=== PATIENT | female | born 1950 | race Caucasian/White ===

== ENCOUNTER 2020-02-25 15:12 | Outpatient (CLI) | payer MEDICARE, BC ==
[2020-02-25] MEDS ORDERED: RUTI1TAB PO (15:47)
[2020-02-25] MEDS ORDERED: DOCU-131 PO (15:47)
[2020-02-25] MEDS ORDERED: CBD cream TP (15:47)
[2020-02-25] MEDS ORDERED: cranberry PO (15:47)
[2020-02-25] MEDS ORDERED: OXYC-307 PO (15:47)
[2020-02-25] MEDS ORDERED: MULT-706 PO (15:47)
[2020-02-25] MEDS ORDERED: MULT-717 PO (15:47)
[2020-02-25] MEDS ORDERED: CALC-126 PO (15:47)
[2020-02-25] MEDS ORDERED: LORA-702 PO (15:47)
[2020-02-25] MEDS ORDERED: CHOL10003 PO (15:47)
[2020-02-25] MEDS ORDERED: LIDO5CRE26 TP (15:47)
[2020-02-25] MEDS ORDERED: MELA10TA3 PO (15:47)
[2020-02-25] MEDS ORDERED: LOPE2CAP3 PO (15:47)
[2020-02-25] MEDS ORDERED: VIT1TABL32 PO (15:47)
[2020-02-25] MEDS ORDERED: LORA-446 PO (15:47)
[2020-02-25 16:48] LABS: BASOPHILS # (AUTO) 0.01 x10^3/uL (0-0.1); BASOPHILS % (AUTO) 0 % (0-1); EOSINOPHILS # (AUTO) 0.09 x10^3/uL (0-0.4); EOSINOPHILS % (AUTO) 1 % (1-7); LYMPHOCYTES # (AUTO) 0.81 x10^3/uL (1-3.4); LYMPHOCYTES % (AUTO) 13 % (22-44); MD NO; MEAN CORPUSCULAR HEMOGLOBIN 33.3 pg (27.0-34.8); MEAN CORPUSCULAR HGB CONC 35.5 g/dL (32.4-35.8); MEAN CORPUSCULAR VOLUME 93.6 fL (80-100); MEAN PLATELET VOLUME 7.5 fL (7.4-10.4); MONOCYTES # (AUTO) 0.29 x10^3/uL (0.2-0.8); MONOCYTES % (AUTO) 5 % (2-9); NEUTROPHILS # (AUTO) 5.08 x10^3/uL (1.8-6.8); NEUTROPHILS % (AUTO) 81 % (42-75); PLATELET COUNT 220 x10^3/uL (130-400); RED BLOOD COUNT 4.26 x10^6/uL (3.82-5.3); RED CELL DISTRIBUTION WIDTH 13.2 % (9.6-15.2)
[2020-02-25 16:48] LABS: MICROSCOPIC AUTO
[2020-02-25 16:54] LABS: INTERNATIONAL NORMALIZED RATIO 0.96 (0.93-1.1); PROTHROMBIN TIME 10.2 Seconds (9.6-11.5)
[2020-02-25 16:55] LABS: ANION GAP 8 mmol/L (5-15); CALCIUM 9.4 mg/dL (8.5-10.1); CHLORIDE 109 mmol/L (98-107); CREATININE 0.67 mg/dL (0.55-1.02)
== END 2020-02-25 23:59 | disposition home or self-care (01) ==
LOC: STAR 15:12
PROVIDERS: ATTEND Urology
DX: Z01.818 Encounter for other preprocedural examination (principal); N20.0 Calculus of kidney
CPT/HCPCS: 36415; 80048; 81001; 85025; 85610; 87077; 87086; 87186; 93005

== ENCOUNTER 2021-06-07 13:37 | Emergency (ER) | payer MEDICARE, BC ==
[~2021-06-07] VITALS: Ht 162.6 cm; Wt 127.3 kg
[~2021-06-07 13:37] MED LIST: CALC-126 PO; CBD cream TP; CHOL10003 PO; DOCU-131 PO; LIDO5CRE26 TP; LOPE2CAP3 PO; LORA-446 PO; LORA-702 PO; MELA10TA3 PO; MULT-706 PO; MULT-717 PO; OXYC-501 PO; RUTI1TAB PO; VIT1TABL32 PO; cranberry PO
[2021-06-07] MEDS ORDERED: OXYcodone IR 5MG TABLET PO ONE ×2 (14:00→17:00)
--- NOTE | 2021-06-07 14:00 | NUR ---
PT BIB [facility] FROM HOME FOR GLF, STATES SHE "TRIPPED AND FELL". C/O PAIN TO R SHOULDER, R HIP, R KNEE. PT REPORTS SHE HAS SEVERE OSTEOARTHRITIS AND "MY R THIGH BONE IS CRUMBLING AFTER CHEMO". PT HYPERVENTILATING D/T PAIN. STATES SHE TAKES PERCOCET AT HOME FOR OA. TEARFUL AT TIMES D/T LOSING HER EARLIER THIS YEAR. WAS ALSO DX WITH BREAST CA THIS YEAR. NO ROTATION OF R LEG NOTED, CMS INTACT.
[2021-06-07] MEDS ORDERED: OXYcodone IR 5MG TABLET ONE ×2 (14:06→16:46)
--- NOTE | 2021-06-07 14:08 | NUR ---
PT MEDICATED PER ORDERS. PLAN TO GET PAIN UNDER CONTROL THEN DO IMAGING. PT UNDERSTANDS POC.
--- NOTE | 2021-06-07 14:54 | NUR ---
PT TO IMAGING [facility]IA [employer] [facility].
[2021-06-07 16:30] VITALS: BP 148/47
--- NOTE | 2021-06-07 16:34 | NUR ---
ERP AT FOR RECHECK. PT C/O SEVERE PAIN/SPASMS TO R HIP/LEG AGAIN AFTER XR. STATES SHE AMBULATES MINIMALLY AT HOME WITH A WALKER "OR SEVERAL CANES".
[2021-06-07] MEDS ORDERED: METHOCARBAMOL 750 MG TABLET ONE (16:45)
[2021-06-07] MEDS ORDERED: METHOCARBAMOL 750 MG TABLET PO ONE (17:00)
--- NOTE | 2021-06-07 18:04 | NUR ---
PT WAS INCONTINENT OF URINE IN [facility]. ASSISTED WITH HYGIENE, CLEAN DIAPER PROVIDED AND ASSISTED PT WITH GETTING DRESSED. PT VERY UPSET, STATES SHE THINKS SHE SHOULD HAVE SURGERY IF THERE IS A LIGAMENT TEAR IN HER LEG. STATES, "I KNOW THIS ISN'T JUST A BRUISE! BUT THERE'S NO ONE THAT WILL HELP ME." PT STATES SHE CAN'T FIND ANYONE TO HELP HER AT HOME. PIPELINES MANAGER NOTIFIED, WILL GO IN TO SPEAK WITH PT.
--- NOTE | 2021-06-07 18:51 | NUR ---
OCCASIONAL CAREGIVER SPOKE TO PT. [facility] ARRANGED TO PICK PT UP AT 1930 AND BRING HER HOME. ASSISTED PT WITH REPOSITIONING. PT DECLINES FOOD. WATER PROVIDED.
--- NOTE | 2021-06-07 19:40 | NUR ---
D/C INSTRUCTIONS RV'WD WITH PT. INSTRUCTED TO F/U WITH [facility]. ASSISTED PT INTO WC. [facility] TO TAKE PT HOME VIA [facility].
== END 2021-06-07 19:41 | disposition home or self-care (01) ==
LOC: ED 13:45
DX: S73.101A Unspecified sprain of right hip, initial encounter (principal); S83.91XA Sprain of unspecified site of right knee, initial encounter; M16.11 Unilateral primary osteoarthritis, right hip; M87.9 Osteonecrosis, unspecified; W18.30XA Fall on same level, unspecified, initial encounter; Y93.89 Activity, other specified; Y92.009 Unspecified place in unspecified non-institutional (private) residence as the place of occurrence of the external cause; Y99.8 Other external cause status
CPT/HCPCS: 71045; 99284